=== PATIENT | male | born 1980 | race Two or more races ===

== ENCOUNTER 2019-06-18 19:35 | Emergency (ER) | payer MEDICAID ==
[~2019-06-18] VITALS: Ht 170.2 cm; Wt 82.6 kg
--- NOTE | 2019-06-18 19:39 | NUR ---
PATIENT BIB [facility] FROM HOME ACCOMPANIED BY ERLIN.
[2019-06-18 19:57] LABS: BASOPHILS # (AUTO) 0.1 K/uL (0.0-8.0); BASOPHILS % (AUTO) 0.8 % (0.0-2.0); EOSINOPHILS % (AUTO) 0.1 % (0.0-7.0); HEMOGLOBIN 14.9 g/dL (12.5-16.3); LYMPHOCYTES # (AUTO) 1.2 K/uL (20.0-40.0); LYMPHOCYTES % (AUTO) 12.6 % (20.5-51.5); MEAN CORPUSCULAR HEMOGLOBIN 30.4 uug (23.8-33.4); MEAN CORPUSCULAR HGB CONC 35 g/dL (32.5-36.3); MONOCYTES # (AUTO) 0.6 K/uL (2.0-10.0); MONOCYTES % (AUTO) 6.2 % (0.0-11.0); NEUTROPHILS # (AUTO) 7.5 K/uL (1.8-8.9); NEUTROPHILS % (AUTO) 80.3 % (38.5-71.5); PLATELET COUNT (AUTO) 249 K/uL (152-348); RED BLOOD CELL COUNT(AUTO) 4.89 MIL/uL (4.06-5.63); WHITE BLOOD COUNT (AUTO) 9.3 K/uL (3.6-10.2)
[2019-06-18 19:59] LABS: *BILIRUBIN,URIN NEGATIVE (NEGATIVE); *BLOOD, URINE NEGATIVE (NEGATIVE); *CLARITY,URINE CLEAR (CLEAR); *COLOR,URINE YELLOW (YELLOW); *KETONES,URINE 1+ (NEGATIVE); *UROBILINOGEN,URINE 0.2 E.U./dl (NORMAL); LEUKOCYTE ESTERASE ,URINE NEGATIVE (NEGATIVE); NITRITE, URINE NEGATIVE (NEGATIVE); UGLUCOSE NEGATIVE (NEGATIVE)
[2019-06-18 20:02] LABS: CARBON DIOXIDE 27 mmol/L (21-32); CHLORIDE 99 mmol/L (98-107); CREATININE 1.1 mg/dL (0.6-1.3); GLUCOSE 80 mg/dL (74-106); POTASSIUM 3.6 mmol/L (3.5-5.1); UREA NITROGEN, BLOOD 10 mg/dL (7-18)
[2019-06-18 20:07] LABS: ALANINE AMINOTRANSFERASE 56 U/L (16-63); ALKALINE PHOSPHATASE 84 U/L (50-136); ASPARTATE AMINOTRANSFERASE 81 U/L (15-37); BILIRUBIN,DIRECT 0.2 mg/dL (0.0-0.2); BILIRUBIN,TOTAL 1.1 mg/dL (0.2-1.0); TOTAL PROTEIN, SERUM 7.8 g/dL (6.4-8.2)
[2019-06-18 20:08] LABS: ACETAMINOPHEN < 10.0 ug/mL (10-30)
[2019-06-18 20:15] LABS: THYROID STIMULATING HORMONE 1.068 mIU/mL (0.358-3.740)
--- NOTE | 2019-06-18 20:15 | NUR ---
SECURITY AT BEDSIDE. PATIENT IN BED AWAKE NOT IN ANY DISTRESS
[2019-06-18 20:17] LABS: *AMPHETAMINE, URINE NEGATIVE (NEGATIVE); *BARBITURATE, URINE NEGATIVE (NEGATIVE); *CANNABINOID, URINE POSITIVE (NEGATIVE); *COCCAINE, URINE NEGATIVE (NEGATIVE); *OPIATE, URINE NEGATIVE (NEGATIVE); *PHENCYCLIDINE SCREEN,URINE NEGATIVE (NEGATIVE)
[2019-06-18 20:31] LABS: ETHANOL < 3 MG/DL (0-0)
--- NOTE | 2019-06-18 20:35 | NUR ---
PATIENT WAS MEDICALLY CLEARED DR AMIN. DEBORAH WAS CALLED WILL SEE PATIENT.
--- NOTE | 2019-06-18 20:56 | NUR ---
PATIENT GIRLFRIEND AT BEDSIDE. OK PER DR AMIN TO HAVE VISITORS.
--- NOTE | 2019-06-18 22:15 | NUR ---
PATIENT WAS SEEN BY DEBORAH FOR EVAL.
[2019-06-18] MEDS ORDERED: OLANZAPINE 5 MG TABLET ONE (22:28)
[2019-06-18] MEDS ORDERED: LORAZEPAM 1 MG TABLET ONE (22:28)
[2019-06-18] MEDS: LORAZEPAM 0.5 MG TABLET PO ONE (22:30)
[2019-06-18] MEDS: OLANZAPINE 5 MG TABLET PO ONE (22:30)
--- NOTE | 2019-06-19 00:54 | NUR ---
Patient is resting comfortably in bed with eyes closed. Security at bedside.
--- NOTE | 2019-06-19 02:00 | NUR ---
Patient is resting comfortably in bed with eyes closed.
--- NOTE | 2019-06-19 04:00 | NUR ---
Patient is sleeping comfortably in bed.
--- NOTE | 2019-06-19 06:00 | NUR ---
Patient still sleeping in bed no s/s any distress.
--- NOTE | 2019-06-19 08:38 | NUR ---
offered patient food
--- NOTE | 2019-06-19 10:21 | NUR ---
RONIT Fleming called and stated she will be here in about 15 minutes to re evaluate patient.
[2019-06-19] MEDS ORDERED: OLANZAPINE 5 MG TABLET ONE (10:22)
[2019-06-19] MEDS: OLANZAPINE 5 MG TABLET PO ONE (10:33)
--- NOTE | 2019-06-19 10:33 | NUR ---
RONIT Fleming at bedside re-evaluating patient.
[2019-06-19] MEDS: LORAZEPAM 0.5 MG TABLET PO ONE (11:11)
[2019-06-19] MEDS ORDERED: LORAZEPAM 1 MG TABLET ONE (11:12)
--- NOTE | 2019-06-19 11:26 | NUR ---
RONIT Fleming broke the hold. Patient behavior improved, and encourages patient to f/u at [facility] for further care. Patient has /girlfriend who is willing to take him to seek aftercare. Denies any SI/HI/VH/AH.
--- NOTE | 2019-06-19 11:47 | NUR ---
Patient discharged to home in stable conditon. Written and verbal after care instructions given. Patient verbalizes understanding of instructions. Patient ambulated with stable gait.
[2019-06-19 11:48] VITALS: BP 135/51
--- NOTE | 2019-06-19 11:48 | NUR ---
Patient left with girlfriend/
== END 2019-06-19 11:48 | disposition home or self-care (01) ==
LOC: ER 19:38
DX: R46.1 Bizarre personal appearance (principal); Z90.49 Acquired absence of other specified parts of digestive tract
CPT/HCPCS: 36415; 80048; 80076; 80307; 81001; 84443; 85025; 99284; G0480 ×2; G0481; A4663